=== PATIENT | female | born 1990 | race Caucasian/White ===

== ENCOUNTER 2021-12-01 07:04 | Emergency (ER) | payer SELFPAY ==
[~2021-12-01] VITALS: Ht 170.2 cm; Wt 49.9 kg
[2021-12-01 07:15] VITALS: BP 106/54
== END 2021-12-01 07:22 | disposition left against medical advice (07) ==
LOC: ER 07:11
DX: Z53.21 Procedure and treatment not carried out due to patient leaving prior to being seen by health care provider (principal)